=== PATIENT | female | born 1990 | race Caucasian/White ===

== ENCOUNTER → 2016-07-04 | Outpatient (CLI) | payer OTHER ==
--- NOTE | 2016-07-04 23:14 | REP ---
Clinical: Anatomical evaluation. Comparison: 05/29/2016 . Findings: Examination demonstrates a single live intrauterine in breech presentation. motion is identified by technologist. Placenta is noted anteriorly and grade zero without evidence for placenta previa or abruption. Amniotic fluid volume is normal. Cervix measures 3.6 cm in length and appears closed. No evidence for nuchal cord. Gestational age by LMP 24 weeks 0 days with ERUM 10/24/2016 . Gestational age by current measurements 24 weeks 2 days with ERUM 10/22/2016 . FHR equals 136 beats per minute. BPD 5.6 cm 93 weeks 1 day HC 21.0 cm 23 weeks 1 day AC 19.7 cm 24 weeks 2 days FL 4.5 cm 25 weeks 0 days HL 4.3 cm 25 weeks 4 days HC/AC ratio 1.07 Estimated weight see 690 grams ( 55th percentile). Anatomical assessment demonstrates normal structures including cranium, choroid plexus, cavum, cerebellum/posterior fossa, lungs, four-chamber heart/ventricular outflow tracts, stomach, kidneys/bladder, spine, and extremities. Mild renal pelviectasis within normal range noted. Impression: 1. Single live intrauterine in breech presentation demonstrating appropriate interval growth. 2. Mild renal pelviectasis within normal range. 3. In conjunction with prior examination anatomical assessment is otherwise complete and normal. Signed by Clarence Lozano MD 07/04/2016 11:05 P
== END ==
LOC: M RAD 17:52
PROVIDERS: ATTEND Nurse Practitioner Women's Health
DX: Z34.92 Encounter for supervision of normal pregnancy, unspecified, second trimester (principal); Z3A.24 24 weeks gestation of pregnancy; O32.1XX0 Maternal care for breech presentation, not applicable or unspecified

== ENCOUNTER → 2016-07-12 | Outpatient (REF) | payer OTHER | LOC: M LAB REF 16:20 | PROVIDERS: ATTEND Physician Assistant | DX: J02.9 Acute pharyngitis, unspecified (principal) ==

== ENCOUNTER → 2016-11-10 | Outpatient (CLI) | payer OTHER ==
[2016-11-10 17:39] LABS: MEAN CORPUSCULAR HEMOGLOBIN 28.9 pg (27.0-33.0); MEAN CORPUSCULAR HGB CONC 33.6 g/dl (32.0-36.5); MEAN CORPUSCULAR VOLUME 86.1 fl (80.0-96.0); RED CELL DISTRIBUTION WIDTH 13.8 % (11.5-14.5); WHITE BLOOD COUNT 19.7 K/mm3 (4.0-10.0)
[2016-11-10 18:44] LABS: ALBUMIN 3.1 GM/DL (3.2-5.2); ALKALINE PHOSPHATASE 121 U/L (45-117); ALT/SGPT 41 U/L (12-78); ANION GAP 11 MEQ/L (8-16); AST/SGOT 18 U/L (15-37); BILIRUBIN,TOTAL 1.4 MG/DL (0.2-1.0); BLOOD UREA NITROGEN 11 MG/DL (7-18); CALCIUM LEVEL 8.3 MG/DL (8.5-10.1); CARBON DIOXIDE LEVEL 27 MEQ/L (21-32); CHLORIDE LEVEL 101 MEQ/L (98-107); CREATININE FOR GFR 0.94 MG/DL (0.55-1.02); FREE T4 1.34 NG/DL (0.76-1.46); GLOMERULAR FILTRATION RATE > 60.0 (>60); GLUCOSE, FASTING 65 MG/DL (70-105); PERCENT SATURATION 5.3 % (13.2-37.4); SODIUM LEVEL 139 MEQ/L (136-145); TOTAL IRON BINDING CAPACITY 414 UG/DL (250-450); TOTAL PROTEIN 7.5 GM/DL (6.4-8.2)
[2016-11-10 19:35] LABS: BASOPHILS 1 % (0-4); EOSINOPHILS 2 % (0-5)
== END ==
LOC: M WUC 15:31
PROVIDERS: ATTEND Physician Assistant
DX: R53.83 Other fatigue (principal)

== ENCOUNTER → 2016-11-13 | Outpatient (CLI) | payer OTHER ==
[2016-11-13 19:39] LABS: BASO # 0.1 K/mm3 (0.0-0.2); BASO % 1.2 % (0.0-1.0); EOS # 0.4 K/mm3 (0.0-0.50); EOS % 6.7 % (0.0-3.0); LARGE UNSTAINED CELL # 0.1 K/mm3 (0.0-0.4); LARGE UNSTAINED CELL % 2.2 % (0.0-4.0); LYMPH # 2.7 K/mm3 (1.5-6.5); LYMPH % 47.5 % (24.0-44.0); MEAN CORPUSCULAR HEMOGLOBIN 29.1 pg (27.0-33.0); MEAN CORPUSCULAR HGB CONC 32.1 g/dl (32.0-36.5); MEAN CORPUSCULAR VOLUME 90.7 fl (80.0-96.0); MONO # 0.4 K/mm3 (0.0-0.8); MONO % 6.6 % (0.0-5.0); NEUTROPHILS # 2.1 K/mm3 (1.8-7.7); NEUTROPHILS % 35.8 % (36.0-66.0); PLATELET COUNT, AUTOMATED 430 k/mm3 (150-450); RED CELL DISTRIBUTION WIDTH 13.7 % (11.5-14.5); WHITE BLOOD COUNT 5.8 K/mm3 (4.0-10.0)
== END ==
LOC: M WUC 16:21
PROVIDERS: ATTEND Physician Assistant
DX: E50.9 Vitamin A deficiency, unspecified (principal)

== ENCOUNTER → 2017-03-22 | Outpatient (CLI) | payer OTHER ==
[2017-03-22 19:37] LABS: COMPLEMENT C4 29.6 MG/DL (10-40); IMMUNOGLOBULIN M 51.7 MG/DL (40-230)
[2017-03-27 08:12] LABS: ALPHA 1 ANTITRYPSIN 143 mg/dL (90-200); F003-IGE CODFISH 0.27 kU/L (Class 0/I); F005-IGE RYE 1.27 kU/L (Class II); F006-IGE BARLEY 1.18 kU/L (Class II); F007-IGE OAT 1.44 kU/L (Class III); F009-IGE RICE 1.26 kU/L (Class II); F012-IGE GREEN PEA 1.24 kU/L (Class II); F018-IGE BRAZIL NUT 0.26 kU/L (Class 0/I); F020-IGE ALMOND 2.49 kU/L (Class III); F023-IGE CRAB <0.10 kU/L (Class 0); F024-IGE SHRIMP 0.18 kU/L (Class 0/I); F031-IGE CARROT 0.68 kU/L (Class II); F033-IGE ORANGE 1.49 kU/L (Class III); F035-IGE POTATO, WHITE 1.48 kU/L (Class III); F040-IGE TUNA 0.14 kU/L (Class 0/I); F041-IGE SALMON <0.10 kU/L (Class 0); F044-IGE STRAWBERRY 6.88 kU/L (Class IV); F050-IGE MACKEREL 0.31 kU/L (Class 0/I); F077-IGE LACTOGLOBULIN, BETA 0.15 kU/L (Class 0/I); F078-IGE CASEIN <0.10 kU/L (Class 0); F080-IGE LOBSTER <0.10 kU/L (Class 0); F081-IGE CHEDDAR CHEESE <0.10 kU/L (Class 0); F082-IGE CHEESE MOLD 0.29 kU/L (Class 0/I); F083-IGE CHICKEN <0.10 kU/L (Class 0); F201-IGE PECAN NUT 0.59 kU/L (Class II); F202-IGE CASHEW NUT 0.31 kU/L (Class 0/I); F204-IGE TROUT 0.13 kU/L (Class 0/I); F207-IGE CLAM 0.19 kU/L (Class 0/I); F256-IGE WALNUT 7.05 kU/L (Class IV); F290-IGE OYSTER <0.10 kU/L (Class 0); F338-IGE SCALLOP 0.54 kU/L (Class I); F343-IGE RASPBERRY 5.11 kU/L (Class IV); F415-IGE WALLEYE PIKE 0.28 kU/L (Class 0/I); I079-IGE GLUTEN 0.35 kU/L (Class I)
[2017-03-27 10:31] LABS: F002-IGE MILK 0.28 kU/L (Class 0/I); F004-IGE WHEAT 1.64 kU/L (Class III); F008-IGE CORN 3.48 kU/L (Class III); F013-IGE PEANUT 7.82 kU/L (Class IV); F014-IGE SOYBEAN 1.57 kU/L (Class III); F026-IGE PORK 0.15 kU/L (Class 0/I); F027-IGE BEEF <0.10 kU/L (Class 0)
[2017-03-28 08:57] LABS: D001-IgE D pteronyssinus >100 kU/L (Class VI); E001-IgE Cat Epith/Dander 9.49 kU/L (Class IV); F092-IGE BANANA 1.01 kU/L (Class II); F094-IGE PEAR 6.94 kU/L (Class IV); F208-IGE LEMON 5.39 kU/L (Class IV); F209-IGE GRAPFRUIT 0.92 kU/L (Class II); F214 IgE SPINACH 4.35 kU/L (Class IV); F216-IGE CABBAGE/HORSE RADISH 6.85 kU/L (Class IV); F225-IGE PUMPK/SUM SQU/ZUCC 0.66 kU/L (Class II); F235-IGE LENTIL 3.26 kU/L (Class III); F244-IGE CUCUMBER 4.41 kU/L (Class IV); F259-IGE GRAPE/WINE VINEGAR 3.39 kU/L (Class III); F260-IGE BROCCOLI 5.51 kU/L (Class IV); F287-IGE KIDNEY BEAN <0.10 kU/L (Class 0); F291-IgE Cauliflower 8.16 kU/L (Class IV); F302-IGE TANGERINE 0.35 kU/L (Class I); F303-IGE HALIBUT 0.24 kU/L (Class 0/I); F306-IGE LIME 1.09 kU/L (Class II); F315-IGE GR BEAN/ STRING BEAN 4.83 kU/L (Class IV); G002-IgE Bermuda Grass 0.77 kU/L (Class II); M001-IgE Penicillium chrysogen 0.16 kU/L (Class 0/I); M002 IgE Cladosporium herbaru 0.12 kU/L (Class 0/I); M003 IgE Aspergillus fumigatu 0.16 kU/L (Class 0/I); M006-IgE Alternaria alternata 0.17 kU/L (Class 0/I); T001-IgE Maple/Box Elder 1.88 kU/L (Class III); T008-IgE Elm, American 3.45 kU/L (Class III); T015-IgE Ash, White 0.64 kU/L (Class II); W001-IgE Ragweed, Short 0.53 kU/L (Class I); W009-IgE Plantain, English 0.39 kU/L (Class I); W014-IgE Pigweed, Rough 1.64 kU/L (Class III); W018-IgE Sheep Sorrel 0.72 kU/L (Class II)
== END ==
LOC: M WUC 13:33
PROVIDERS: ATTEND Allergy & Immunology
DX: J30.1 Allergic rhinitis due to pollen (principal); J30.2 Other seasonal allergic rhinitis; L27.2 Dermatitis due to ingested food

== ENCOUNTER → 2019-02-18 | Outpatient (CLI) | payer OTHER ==
[2019-02-24 00:08] LABS: D001-IgE D pteronyssinus >100 kU/L (Class VI); E001-IgE Cat Epith/Dander 4.84 kU/L (Class IV); F002-IgE Milk 0.28 kU/L (Class 0/I); F004-IgE Wheat 1.25 kU/L (Class II); F013-IgE Peanut 4.87 kU/L (Class IV); F014-IgE Soybean 1.67 kU/L (Class III); F027-IgE Beef < 0.10 kU/L (Class 0); F245-IgE Egg, Whole 0.41 kU/L (Class I); FX02-IgE Food Mix (Sea Foods) Negative (.); G002-IgE Bermuda Grass 0.41 kU/L (Class I); M001-IgE Penicillium chrysogen 0.16 kU/L (Class 0/I); M002 IgE Cladosporium herbaru 0.15 kU/L (Class 0/I); M003 IgE Aspergillus fumigatu 0.14 kU/L (Class 0/I); M006-IgE Alternaria alternata 0.33 kU/L (Class I); T001-IgE Maple/Box Elder 1.21 kU/L (Class II); T006-IgE Cedar, Mountain 0.42 kU/L (Class I); T007-IgE Oak, White 8.05 kU/L (Class IV); T008-IgE Elm, American 2.22 kU/L (Class III); T015-IgE Ash, White 0.64 kU/L (Class II); T070-IgE White Mulberry 0.15 kU/L (Class 0/I); W001-IgE Ragweed, Short 0.57 kU/L (Class II); W009-IgE Plantain, English 0.35 kU/L (Class I); W014-IgE Pigweed, Rough 0.84 kU/L (Class II); W018-IgE Sheep Sorrel 0.48 kU/L (Class I)
== END ==
LOC: M WUC 13:12
PROVIDERS: ATTEND Nurse Practitioner Family
DX: J30.1 Allergic rhinitis due to pollen (principal); J30.81 Allergic rhinitis due to animal (cat) (dog) hair and dander; J30.89 Other allergic rhinitis

== ENCOUNTER → 2020-12-31 | Outpatient (REF) | payer OTHER | LOC: M LAB REF 16:22 | PROVIDERS: ATTEND Advanced Practice Midwife | DX: R30.0 Dysuria (principal) ==

== ENCOUNTER → 2022-08-01 | Outpatient (REF) | payer OTHER ==
[2022-08-01 18:05] LABS: HIV 1&2 SCREEN CENTAUR NEGATIVE (NEGATIVE)
[2022-08-01 18:17] LABS: HCG, SERUM QUANTITATIVE 142240.8 MIU/ML (<4.2)
== END ==
LOC: M LAB REF 16:21
PROVIDERS: ATTEND Obstetrics & Gynecology
DX: O36.80X0 Pregnancy with inconclusive fetal viability, not applicable or unspecified (principal); Z32.01 Encounter for pregnancy test, result positive

== ENCOUNTER → 2022-08-17 | Outpatient (CLI) | payer OTHER | LOC: M WHC 13:16 | PROVIDERS: ATTEND Obstetrics & Gynecology | DX: O36.80X0 Pregnancy with inconclusive fetal viability, not applicable or unspecified (principal); Z3A.10 10 weeks gestation of pregnancy ==

== ENCOUNTER → 2022-08-30 | Outpatient (REF) | payer OTHER ==
[2022-08-30 16:48] LABS: HEMATOCRIT 38.5 % (36.0-47.0); MEAN CORPUSCULAR HEMOGLOBIN 29.1 pg (27.0-33.0); MEAN CORPUSCULAR HGB CONC 33.8 g/dl (32.0-36.5); MEAN CORPUSCULAR VOLUME 86.1 fl (80.0-96.0); PLATELET COUNT, AUTOMATED 234 10^3/uL (150-450); RED BLOOD COUNT 4.47 10^6/uL (4.00-5.40); WHITE BLOOD COUNT 10.9 10^3/uL (4.0-10.0)
== END ==
LOC: M LAB REF 16:12
PROVIDERS: ATTEND Obstetrics & Gynecology
DX: Z34.81 Encounter for supervision of other normal pregnancy, first trimester (principal)

== ENCOUNTER → 2022-10-31 | Outpatient (CLI) | payer OTHER | LOC: M WHC 13:03 | PROVIDERS: ATTEND Obstetrics & Gynecology | DX: Z34.82 Encounter for supervision of other normal pregnancy, second trimester (principal) ==

== ENCOUNTER → 2022-12-15 | Outpatient (CLI) | payer OTHER ==
[2022-12-15 12:05] LABS: HEMATOCRIT 34.5 % (36.0-47.0); HEMOGLOBIN 11.4 g/dl (12.0-15.5); MEAN CORPUSCULAR HEMOGLOBIN 29.7 pg (27.0-33.0); MEAN CORPUSCULAR VOLUME 89.8 fl (80.0-96.0); PLATELET COUNT, AUTOMATED 201 10^3/uL (150-450); RED BLOOD COUNT 3.84 10^6/uL (4.00-5.40); WHITE BLOOD COUNT 12.7 10^3/uL (4.0-10.0)
== END ==
LOC: M WUC 08:26
PROVIDERS: ATTEND Obstetrics & Gynecology
DX: Z34.82 Encounter for supervision of other normal pregnancy, second trimester (principal)

== ENCOUNTER → 2022-12-29 | Outpatient (CLI) | payer OTHER | LOC: M LAB 06:38 | PROVIDERS: ATTEND Obstetrics & Gynecology | DX: O99.810 Abnormal glucose complicating pregnancy (principal) ==

== ENCOUNTER → 2023-02-08 | Outpatient (REF) | payer OTHER | LOC: M LAB REF 11:09 | PROVIDERS: ATTEND Obstetrics & Gynecology | DX: Z36.85 Encounter for antenatal screening for Streptococcus B (principal) ==

== ENCOUNTER → 2023-10-02 | Outpatient (REF) | payer OTHER ==
[2023-10-02 12:44] LABS: CHOLESTEROL RISK RATIO 2.63 (<5); HDL CHOLESTEROL 50.5 MG/DL (>40); LDL CHOLESTEROL 72.5 MG/DL (<100); NON-HDL-C 82.5 MG/DL
[2023-10-02 12:47] LABS: THYROID STIMULATING HORMONE 0.803 uIU/ML (0.55-4.78); TOTAL 25(OH) VITAMIN D 37.7 NG/ML (20.0-100.0)
== END ==
LOC: M LAB REF 11:40
PROVIDERS: ATTEND Pediatrics
DX: F41.9 Anxiety disorder, unspecified (principal); E55.9 Vitamin D deficiency, unspecified; Z13.220 Encounter for screening for lipoid disorders

== ENCOUNTER → 2024-01-21 | Outpatient (CLI) | payer OTHER ==
[2024-01-23 14:22] LABS: QuantiFERON-TB Gold Plus NEGATIVE (NEGATIVE)
== END ==
LOC: M LAB 12:15
PROVIDERS: ATTEND Pediatrics
DX: Z11.7 Encounter for testing for latent tuberculosis infection (principal)

== ENCOUNTER → 2024-05-12 | Outpatient (REF) | payer OTHER ==
[2024-05-12 18:46] LABS: BASO # 0.1 10^3/uL (0.0-0.2); BASO % 0.9 % (0.0-1.0); EOS # 0.6 10^3/uL (0.0-0.5); EOS % 5.4 % (0.0-3.0); HEMATOCRIT 43.4 % (36.0-47.0); HEMOGLOBIN 14.1 g/dl (12.0-15.5); LYMPH # 2.3 10^3/uL (1.5-5.0); LYMPH % 19.7 % (24.0-44.0); MEAN CORPUSCULAR HEMOGLOBIN 28.8 pg (27.0-33.0); MEAN CORPUSCULAR HGB CONC 32.5 g/dl (32.0-36.5); MEAN CORPUSCULAR VOLUME 88.8 fl (80.0-96.0); MONO # 0.7 10^3/uL (0.0-0.8); MONO % 6.2 % (2.0-8.0); NEUTROPHILS # 7.8 10^3/uL (1.5-8.5); NEUTROPHILS % 67.5 % (36.0-66.0); PLATELET COUNT, AUTOMATED 249 10^3/uL (150-450); RED BLOOD COUNT 4.89 10^6/uL (4.00-5.40); WHITE BLOOD COUNT 11.6 10^3/uL (4.0-10.0)
[2024-05-12 19:13] LABS: ALBUMIN 3.8 G/DL (3.2-5.2); ALKALINE PHOSPHATASE 82 U/L (35-104); ALT/SGPT 14 U/L (7.0-40); AST/SGOT 10 U/L (<34); BILIRUBIN,TOTAL 2.5 MG/DL (0.3-1.2); BLOOD UREA NITROGEN 9 MG/DL (9-23); CARBON DIOXIDE LEVEL 26 MMOL/L (20-31); CHLORIDE LEVEL 106 MMOL/L (98-107); GLOMERULAR FILTRATION RATE > 60.0 (>60); GLUCOSE, FASTING 71 MG/DL (60-100); POTASSIUM SERUM 4.5 MMOL/L (3.5-5.1); SODIUM LEVEL 138 MMOL/L (136-145); TOTAL PROTEIN 7.6 G/DL (5.7-8.2)
[2024-05-12 19:32] LABS: ERYTHROCYTE SEDIMENTATION RATE 44 mm/hr (0-20)
[2024-05-15 15:32] LABS: ANA SCREEN, IFA NEGATIVE (NEGATIVE)
== END ==
LOC: M LAB REF 17:27
PROVIDERS: ATTEND Pediatrics
DX: H15.002 Unspecified scleritis, left eye (principal)

== ENCOUNTER → 2024-08-14 | Outpatient (REF) | payer OTHER | LOC: M LAB REF 13:25 | PROVIDERS: ATTEND Pediatrics | DX: H15.002 Unspecified scleritis, left eye (principal) ==

== ENCOUNTER → 2025-02-20 | Outpatient (CLI) | payer OTHER | LOC: M LAB 11:54 | PROVIDERS: ATTEND Physician Assistant | DX: Z02.0 Encounter for examination for admission to educational institution (principal) ==